=== PATIENT | female | born 1965 | race Caucasian/White ===

== ENCOUNTER 2019-11-24 23:26 | Emergency (ER) | payer BC, MEDICAID ==
[~2019-11-24] VITALS: Ht 170.2 cm; Wt 113.4 kg
[2019-11-24 23:30] VITALS: BP 184/100
--- NOTE | 2019-11-24 23:30 | NUR ---
to bed # 02 ambulatory
--- NOTE | 2019-11-24 23:54 | NUR ---
54 Y/O FEMALE PRESENTS TO ED, C/O HEADACHE. PT STATES HEADACHE STARTED AROUND 1400 TODAY, 08/04. PT TOOK ALEVE AND NYQUIL WITH NO RELIEF. PAIN DOES NOT RADIATE. PT DENIES N/V/D. PT STATES BEING STRESSED AND HAVING A LOT OF ANXIETY. PT HAS ELEVATED BP DURING ASSESSMENT, DENIES ANY HX OF HTN, NO MEDICATIONS TAKEN FOR BP. PT ABLE TO AMBULATE WITH STEADY GAIT. ERMD AWARE. WILL CONTINUE TO MONITOR.
[2019-11-25] MEDS ORDERED: ACETAMIN/CODEINE 120/12MG-5ML 5 ML UDC PO ONE (00:45)
[2019-11-25] MEDS ORDERED: KETOROLAC 30 MG/ML VIAL IM ONE (00:45)
--- NOTE | 2019-11-25 00:50 | NUR ---
FLU SWAB COLLECTED AND GIVEN TO LAB
[2019-11-25 01:28] VITALS: BP 218/113
--- NOTE | 2019-11-25 01:28 | NUR ---
PT DISCHARGED WITHOUT PAPERWORK. PT DID NOT SIGN D/C PAPERWORK. EDUCATED PT REGARDING D/C INSTRUCTIONS. TOLD PT TO FOLLOW UP WITH PCP AND WHEN TO RETURN TO ED. PT STABLE CONDITION. ALL QUESTIONS ANSWERED.
== END 2019-11-25 01:28 | disposition home or self-care (01) ==
LOC: MED 23:26
DX: J10.1 Influenza due to other identified influenza virus with other respiratory manifestations (principal)
CPT/HCPCS: 87804; 96372; 99283; J1885

== ENCOUNTER 2019-11-25 14:44 | Emergency (ER) | payer BC ==
[~2019-11-25] VITALS: Ht 170.2 cm; Wt 111.1 kg
--- NOTE | 2019-11-25 15:06 | NUR ---
PT TAKEN TO BED 12.
--- NOTE | 2019-11-25 15:20 | NUR ---
FLU SWABS COLLECTED AT BEDSIDE
--- NOTE | 2019-11-25 15:24 | NUR ---
54 Y/O FEMALE PRESENTS WITH DRY COUGH X2 DAYS + TEMPORAL HEADACHE 10/10 DULL PAIN RADIATING TO EARS. DENIES SOB/CP. RESP EVEN AND UNLABORED, NO ACCESSORY MUSCLE USE NOTED. DENIES FEVER/N/V/D. ABD SOFT/NON TENDER. LUNG SOUNDS CLEAR IN BILAT LOBES. PT STATES SHE CAME TO [facility] LAST NIGHT AND RECEIVED A SHOT (DOES NOT RECALL MED) THAT HELPED RELIEVE HER HEADACHE FOR AN HOUR. PT STATES SHE IS UNABLE TO SLEEP DUE TO HEADACHE. DENIES ANY CHANGES IN VISION. AAOX3 NO PMH NKA
[2019-11-25] MEDS ORDERED: KETOROLAC 60 MG/2 ML VIAL IM ONE (15:40)
[2019-11-25 16:02] VITALS: BP 195/105
--- NOTE | 2019-11-25 16:02 | NUR ---
Patient discharged with v/s stable. Written and verbal after care instructions given and explained. Patient alert, oriented and verbalized understanding of instructions. Ambulatory with steady gait. All questions addressed prior to discharge. ID band removed. Patient advised to follow up with PMD. Rx of TAMIFLU, TYLENOL, NAPROXEN given. Patient educated on indication of medication including possible reaction and side effects. Opportunity to ask questions provided and answered.
== END 2019-11-25 16:02 | disposition home or self-care (01) ==
LOC: MED 14:44
DX: J10.1 Influenza due to other identified influenza virus with other respiratory manifestations (principal); F12.90 Cannabis use, unspecified, uncomplicated
CPT/HCPCS: 87804; 96372; 99283; J1885

== ENCOUNTER 2023-10-25 16:59 | Emergency (ER) | payer BC ==
[~2023-10-25] VITALS: Ht 170.2 cm; Wt 113.4 kg
[2023-10-25 17:38] VITALS: BP 217/114; PULSE 84; RESP 18; TEMP 97.7; O2SAT 99
[2023-10-25] MEDS ORDERED: ONDANSETRON 4 MG/2 ML VIAL IVP ONE (17:55)
[2023-10-25] MEDS ORDERED: NACL 0.9% 1,000 ML IV ONE (17:55)
[2023-10-25 18:16] LABS: BASOPHILS # (AUTO) 0.1 K/uL (0.00-0.22); BASOPHILS % (AUTO) 0.8 % (0.0-2.0); EOSINOPHILS # (AUTO) 0.1 K/uL (0-0.4); EOSINOPHILS % (AUTO) 0.7 % (0.0-4.0); HEMATOCRIT 52.4 % (36-48); LYMPHOCYTES # (AUTO) 2.1 K/uL (2.5-16.5); LYMPHOCYTES % (AUTO) 23.4 % (20.5-51.1); MEAN CORPUSCULAR HEMOGLOBIN 29 pg (27-31); MEAN CORPUSCULAR HGB CONC 34 g/dL (33-37); MEAN CORPUSCULAR VOLUME 85.6 fL (80-94); MONOCYTES # (AUTO) 0.3 K/uL (0.8-1.0); MONOCYTES % (AUTO) 3.2 % (1.7-9.3); NEUTROPHILS # (AUTO) 6.3 K/uL (1.8-7.7); NEUTROPHILS % (AUTO) 71.9 % (42.2-75.2); PLATELET COUNT (AUTO) 246 K/uL (140-450); RED BLOOD CELL COUNT(AUTO) 6.12 MIL/uL (4.20-5.40); RED CELL DISTRIBUTION WIDTH 13.2 % (11.6-13.7); WHITE BLOOD COUNT (AUTO) 8.8 K/uL (4.8-10.8)
[2023-10-25 18:39] LABS: INR 1.33 (0.8-1.2); PARTIAL THROMBOPLASTIN TIME 25.7 secs (22-35.6); PROTHROMBIN TIME 13.8 secs (10.8-13.4)
[2023-10-25] MEDS ORDERED: LABETALOL 20 MG/4 ML VIAL IVP ONE ×2 (18:45→19:15)
[2023-10-25 19:01] LABS: ANION GAP 9.8 (8-16); CALCIUM 9.7 mg/dL (8.5-10.1); CARBON DIOXIDE 32.5 mmol/L (21-32); CREATININE 0.9 mg/dL (0.6-1.3); POTASSIUM 4.3 mmol/L (3.5-5.1)
[2023-10-25 19:04] VITALS: BP 234/118; PULSE 66; RESP 14; TEMP 97.8
[2023-10-25 19:20] LABS: ALANINE AMINOTRANSFERASE 55 U/L (12-78); ALBUMIN 3.6 g/dL (3.4-5.0); ALKALINE PHOSPHATASE 120 U/L (50-136); ASPARTATE AMINOTRANSFERASE 29 U/L (15-37); BILIRUBIN,DIRECT 0.1 mg/dL (0.0-0.3); TOTAL BILIRUBIN 0.6 mg/dL (0.0-1.0); TOTAL PROTEIN, SERUM 9.2 g/dL (6.4-8.2)
[2023-10-25] MEDS ORDERED: MECLIZINE 25 MG TAB PO ONE (19:25)
[2023-10-25] MEDS ORDERED: METOCLOPRAMIDE 10 MG/2 ML INJ VIAL IVP ONE (19:25)
[2023-10-25] MEDS ORDERED: diphenhydrAMINE 50 MG/ML VIAL IVP ONE (19:25)
[2023-10-25 19:39] VITALS: O2SAT 98
== END 2023-10-25 21:48 | disposition left against medical advice (07) ==
LOC: MED 16:59
DX: I16.1 Hypertensive emergency (principal); R42 Dizziness and giddiness; R94.31 Abnormal electrocardiogram [ECG] [EKG]; R73.9 Hyperglycemia, unspecified; Z20.822 Contact with and (suspected) exposure to COVID-19
CPT/HCPCS: 36415; 70450; 71045; 80048; 80076; 82948; 83880; 84484; 85025; 85610; 85730; 87426; 93005; 96361; 96374; 96375; 96376; 99291; 99292; J1200; J2405; J2765; J3490; J7030; J8597; Q0092

== ENCOUNTER 2023-10-28 18:29 | Emergency (ER) | payer BC ==
[2023-10-29] MEDS ORDERED: MECL-303 PO (09:01)
== END 2023-10-28 19:28 | disposition left against medical advice (07) ==
LOC: MED 18:29
DX: R53.1 Weakness (principal); Z53.21 Procedure and treatment not carried out due to patient leaving prior to being seen by health care provider

== ENCOUNTER 2023-10-29 07:33 | Emergency (ER) | payer BC ==
[~2023-10-29] VITALS: Ht 167.6 cm; Wt 113.4 kg
[2023-10-29 07:49] VITALS: BP 171/110; PULSE 81; RESP 18; TEMP 98.1; O2SAT 98
[2023-10-29 08:02] VITALS: TEMP 98.1
[2023-10-29] MEDS ORDERED: MECLIZINE 25 MG TAB PO ONE (08:15)
[2023-10-29 08:28] LABS: BASOPHILS # (AUTO) 0.1 K/uL (0.00-0.22); BASOPHILS % (AUTO) 1.1 % (0.0-2.0); EOSINOPHILS # (AUTO) 0.2 K/uL (0-0.4); EOSINOPHILS % (AUTO) 2.2 % (0.0-4.0); HEMATOCRIT 54.2 % (36-48); HEMOGLOBIN 18.5 g/dL (12.0-16.0); LYMPHOCYTES # (AUTO) 3.7 K/uL (2.5-16.5); LYMPHOCYTES % (AUTO) 36.2 % (20.5-51.1); MEAN CORPUSCULAR HEMOGLOBIN 30 pg (27-31); MEAN CORPUSCULAR HGB CONC 34 g/dL (33-37); MEAN CORPUSCULAR VOLUME 86.4 fL (80-94); MONOCYTES # (AUTO) 0.7 K/uL (0.8-1.0); MONOCYTES % (AUTO) 7.2 % (1.7-9.3); NEUTROPHILS # (AUTO) 5.4 K/uL (1.8-7.7); NEUTROPHILS % (AUTO) 53.3 % (42.2-75.2); PLATELET COUNT (AUTO) 236 K/uL (140-450); RED BLOOD CELL COUNT(AUTO) 6.27 MIL/uL (4.20-5.40); RED CELL DISTRIBUTION WIDTH 13.2 % (11.6-13.7); WHITE BLOOD COUNT (AUTO) 10.2 K/uL (4.8-10.8)
[2023-10-29 08:48] LABS: ANION GAP 11.6 (8-16); CALCIUM 9.4 mg/dL (8.5-10.1); CARBON DIOXIDE 29.7 mmol/L (21-32); CREATININE 0.8 mg/dL (0.6-1.3); POTASSIUM 4.3 mmol/L (3.5-5.1)
[2023-10-29] MEDS ORDERED: MECL-303 PO (09:01)
[2023-10-29 09:28] VITALS: BP 212/116; PULSE 82; RESP 18; O2SAT 97
== END 2023-10-29 09:10 | disposition home or self-care (01) ==
LOC: MED 07:33
DX: R42 Dizziness and giddiness (principal); I10 Essential (primary) hypertension; R73.9 Hyperglycemia, unspecified; Z79.899 Other long term (current) drug therapy
CPT/HCPCS: 36415; 80048; 84484; 85025; 93005; 99284; J8597